=== PATIENT | male | born 1945 | race Caucasian/White ===

== ENCOUNTER 2022-07-16 10:08 | Emergency (ER) | payer OTHER, MEDICARE ==
[~2022-07-16] VITALS: Ht 177.8 cm; Wt 100.0 kg
--- NOTE | 2022-07-16 10:23 | NUR ---
spoke to Dr Milner re: trauma, confirmed no head strike, fall on blood thinners
[2022-07-16] MEDS ORDERED: TRAM50TA2 PO (12:05)
[2022-07-16] MEDS ORDERED: acetaminophen 325mg tablet PO ONE (12:40)
--- NOTE | 2022-07-16 13:04 | NUR ---
PT STATES THAT HE CAN NOT WALK AND WHEN HE TRYS TO WALK HE FEELS DIZZY.
[2022-07-16] MEDS ORDERED: ketorolac trometh inj. 60 MG/2 ML VIAL IM ONE (13:15)
[2022-07-16] MEDS ORDERED: ketorolac tromethamine 15mg/ml inj. IM ONE (13:15)
[2022-07-16 15:51] VITALS: BP 125/85
== END 2022-07-16 15:55 | disposition home or self-care (01) ==
LOC: ER 10:09
DX: M25.561 Pain in right knee (principal); M25.461 Effusion, right knee; M25.521 Pain in right elbow; D68.69 Other thrombophilia; Z88.6 Allergy status to analgesic agent; Z79.899 Other long term (current) drug therapy; Z79.1 Long term (current) use of non-steroidal anti-inflammatories (NSAID); W19.XXXA Unspecified fall, initial encounter; Y93.89 Activity, other specified; Y92.89 Other specified places as the place of occurrence of the external cause; Y99.8 Other external cause status
CPT/HCPCS: 73080; 73564; 96372; 99284; J1885; A6449